=== PATIENT | male | born 1970 | race Caucasian/White ===

== ENCOUNTER 2016-11-05 15:47 | Inpatient (IN) | payer BC ==
[~2016-11-05 15:47] MED LIST: 3-IN3MIS; HYDR-3580 PO; WALKER WHEELS/F1 MIS; XARE15TA PO
[2016-11-05 15:50] VITALS: BP 146/92; PULSE 99; RESP 20; TEMP 97.9; O2SAT 98
[2016-11-05] MEDS ORDERED: SODIUM CHLOR 0.9% 1000 ML INJ 1,000 ML IV ONE ×2 (15:53→17:00)
[2016-11-05 15:57] VITALS: O2SAT 98
[2016-11-05] MEDS ORDERED: IOHEXOL 350 MG/ML 10 ML VIAL (for RAD DIAG) IV ONE (16:07)
--- NOTE | 2016-11-05 16:09 | RADRPT ---
EXAM DATE/TIME: 11/05/2016 15:58 [facility] COMPARISON: No previous studies available for comparison. INDICATIONS : Stroke alert; aphasia. RADIATION DOSE: 36.76 CTDIvol (mGy) This report was called by Dr. varela to Dr. Mcnulty at 4: 07 PM MEDICAL HISTORY : Non-responsive. SURGICAL HISTORY : Non-responsive. ENCOUNTER: Initial ACUITY: 1 day PAIN SCALE: Non-responsive LOCATION: cranial TECHNIQUE: Multiple contiguous axial images were obtained of the head. Using automated exposure control and adj ustment of the mA and/or kV according to patient size, radiation dose was kept as low as reasonably a chievable to obtain optimal diagnostic quality images. FINDINGS: CEREBRUM: The ventricles are normal for age. No evidence of midline shift, mass lesion, hemorrhage or acute in farction. No extra-axial fluid collections are seen. POSTERIOR FOSSA: The cerebellum and brainstem are intact. The 4th ventricle is midline. The cerebellopontine angle i s unremarkable. EXTRACRANIAL: The visualized portion of the orbits is intact. There is chronic sinus disease in the left maxillary sinus. There is chronic sinus disease in the ethmoid sinuses. SKULL: The calvaria is intact. No evidence of skull fracture. CONCLUSION: Normal examination for a patient of this age. Zelalem Pearson MD on November 05, 2016 at 16:06 Board Certified Radiologist. This report was verified electronically.
[2016-11-05 16:10] LABS: I-STAT POTASSIUM 3.6 MMOL/L (3.5-4.9); I-STAT SODIUM 147 MMOL/L (138-146)
[2016-11-05 16:11] LABS: AUTOMATED NEUTROPHIL # 3.2 TH/MM3 (1.8-7.7); BASOPHIL # 0.1 TH/MM3 (0-0.2); BASOPHIL % 0.7 % (0.0-2.0); EOSINOPHIL # 0.2 TH/MM3 (0-0.4); EOSINOPHIL % 2.2 % (0.0-4.0); HEMATOCRIT 43.1 % (39.0-51.0); HEMO FLAGS DIFF FINAL; LYMPH % 50.3 % (9.0-44.0); MEAN CELL VOLUME 94.9 FL (80.0-100.0); MEAN CORPUSCULAR HEMOGLOBIN 32.1 PG (27.0-34.0); MEAN CORPUSCULAR HGB CONC 33.8 % (32.0-36.0); MONO % 6.5 % (0.0-8.0); NEUT % 40.3 % (16.0-70.0); PLATELET COUNT 170 TH/MM3 (150-450); RED BLOOD COUNT 4.54 MIL/MM3 (4.50-5.90); RED CELL DISTRIBUTION WIDTH 14.8 % (11.6-17.2); WHITE BLOOD COUNT 7.9 TH/MM3 (4.0-11.0)
[2016-11-05 16:17] LABS: APTT (PATIENT) 26.3 SEC (24.3-30.1); PROTHROMBIN TIME - PATIENT 10.8 SEC (9.8-11.6)
[2016-11-05 16:24] VITALS: O2SAT 100
--- NOTE | 2016-11-05 16:25 | RADRPT ---
EXAM DATE/TIME: 11/05/2016 16:06 [facility] COMPARISON: CT BRAIN W/O CONTRAST, November 05, 2016, 15:58. INDICATIONS : Stroke alert; aphasia; evaluate for occlusion. IV CONTRAST: 75 cc Omnipaque 350 (iohexol) IV ; Cumulative dose for multiple exams. RADIATION DOSE: 28.14 CTDIvol (mGy) ; Combined studies MEDICAL HISTORY : Non-responsive. SURGICAL HISTORY : Non-responsive. ENCOUNTER: Initial ACUITY: 1 day PAIN SCALE: Non-responsive LOCATION: cranial TECHNIQUE: Volumetric scanning was performed using a multi-row detector CT scanner. The data was post processed with a variety of visualization algorithms including full volume maximum intensity projection, multi -planar sliding thin slab reformation, curved planar reformation, and surface rendering techniques. Using automated exposure control and adjustment of the mA and/or kV according to patient size, radiat ion dose was kept as low as reasonably achievable to obtain optimal diagnostic quality images. FINDINGS: Both distal internal carotid arteries are widely patent. The vertebral arteries are patent. The right vertebral is diminutive in size. The appearance of anterior and middle cerebral circulation is within normal limits. No large or centr al vessel occlusion is identified. The basilar somewhat small in size. Both posterior communicating arteries are patent. The posterior c erebral circulation is widely patent. CONCLUSION: 1. No large or central vessel occlusion identified. 2. Congenitally small right vertebral. Zane Puckett MD on November 05, 2016 at 16:20 Board Certified Radiologist. This report was verified electronically.
--- NOTE | 2016-11-05 16:26 | RADRPT ---
EXAM DATE/TIME: 11/05/2016 16:14 [facility] COMPARISON: HIP LEFT (AP&LAT 2/3VWS) WO AP PELVIS, September 05, 2016, 15:05. INDICATIONS : Storke alert. MEDICAL HISTORY : Unobtainable. SURGICAL HISTORY : Unobtainable. ENCOUNTER: Initial ACUITY: 1 day PAIN SCORE: Non-responsive. LOCATION: Bilateral chest FINDINGS: The heart is mildly enlarged. There are chronic interstitial changes within the pulmonary parenchyma. The lungs are otherwise clear. The visualized bony structures are grossly intact. CONCLUSION: 1. Mild cardiomegaly. No acute abnormality identified. Zane Puckett MD on November 05, 2016 at 16:24 Board Certified Radiologist. This report was verified electronically.
[2016-11-05 16:30] VITALS: BP 155/99; PULSE 85; RESP 18; O2SAT 97
--- NOTE | 2016-11-05 16:43 | RADRPT ---
EXAM DATE/TIME: 11/05/2016 16:06 [facility] COMPARISON: No previous studies available for comparison. INDICATIONS : Stroke alert; aphasia; evaluate for occlusion. IV CONTRAST: 75 cc Omnipaque 350 (iohexol) IV ; Cumulative dose for multiple exams. RADIATION DOSE: 28.14 CTDIvol (mGy) ; Combined studies MEDICAL HISTORY : Non-responsive. SURGICAL HISTORY : Non-responsive. ENCOUNTER: Initial ACUITY: 1 day PAIN SCALE: Non-responsive LOCATION: neck TECHNIQUE: Volumetric scanning was performed using a multirow detector CT scanner. The data was post processed with a variety of visualization algorithms including full-volume maximum intensity projection, multip lanar sliding thin-slab reformation, curved-planar reformation, and surface-rendering techniques. Us ing automated exposure control and adjustment of the mA and/or kV according to patient size, radiatio n dose was kept as low as reasonably achievable to obtain optimal diagnostic quality images. FINDINGS: AORTIC ARCH: Truncus arch anatomy with common origin of the right brachiocephalic artery and left common carotid a rtery from the arch. No evidence of arch vessel stenosis. RIGHT CAROTID: The common carotid artery is intact. The carotid bulb has a normal configuration without ulceration o r narrowing. The internal carotid artery lumen is smooth without stenosis. The external carotid amer[place] ry is intact. LEFT CAROTID: The common carotid artery is intact. The carotid bulb has a normal configuration without ulceration or narrowing. The internal carotid artery lumen is smooth without stenosis. The external carotid ar ronaldo is intact. VERTEBRALS: Vertebral arteries are patent bilaterally, left side dominant. CONCLUSION: No evidence of carotid stenosis or occlusion Dom Horn MD on November 05, 2016 at 16:38 Board Certified Radiologist. This report was verified electronically.
[2016-11-05 16:46] LABS: CREATINE KINASE 49 U/L (39-308)
--- NOTE | 2016-11-05 17:01 | PD ---
HPI Chief Complaint: Stroke Alert Time Seen by Provider: 15:52 Travel History International Travel<30 days: No Contact w/Intl Traveler<30days: No Traveled to known affect area: No History of Present Illness HPI Patient is a 46-year-old male brought in as a stroke alert. Per EMS patient was last seen normal 45 minutes prior to arrival. Patient's son states that he was speaking to him, then he went to take a nap. 10 minutes after he left him, he heard him garbling his words and making noises as if he was in pain. He was unable to arouse him, so he called 911. Patient's son does state that he drinks alcohol often. He is on Xarelto for DVT, and his son states that he has been taking them appropriately. He states he had no complaints earlier today. Patient currently is a phasic, and cannot answer questions. PFSH Past Medical History Cancer: No Cardiovascular Problems: No Diabetes: No Diminished Hearing: No Endocrine: No Gastrointestinal Disorders: Yes (umbilical hernia ) Genitourinary: No Hepatitis: No Hiatal Hernia: No Hypertension: No Immune Disorder: No Musculoskeletal: No Neurologic: No Psychiatric: No Reproductive: No Respiratory: Yes (SPONTANIOUS PNEUMOTHORAX IN 1999) Immunizations Current: Yes Thyroid Disease: No Past Surgical History Abdominal Surgery: Yes (UMBILICAL HERNIA) Cardiac Surgery: No Ear Surgery: No Endocrine Surgery: No Eye Surgery: No Genitourinary Surgery: No Gynecologic Surgery: No Neurologic Surgery: No Oral Surgery: No Thoracic Surgery: No Other Surgery: Yes Social History Alcohol Use: Yes (1-2 BEERS PER DAY) Tobacco Use: No (QUIT 4 YRS AGO smoked 1/3 ppd) Substance Use: No Allergies-Medications (Allergen,Severity, Reaction): Coded Allergies: No Known Allergies (Verified , 09/20/16) Reported Meds & Prescriptions Reported Meds & Active Scripts Active Xarelto (Rivaroxaban) 15 Mg Tab 15 Mg PO BID 20 Days 3-in-1 Commode (Device) 1 Mis Mis Box Walker with Front Wheels (Device) 1 Mis Mis 1 Ea .ROUTE DIRECTED Hydrocodone-Acetaminophen 7.5-325 mg Tab 1 Tab PO Q4H PRN Review of Systems ROS Limitations: Clinical Condition, Altered Mental Status Physical Exam Exam Limitations: Clinical Condition Narrative GENERAL: Awake, answers to his name, unable to answer questions. SKIN: Warm and dry. HEAD: Atraumatic. Normocephalic. EYES: Pupils equal and round. No scleral icterus. EOMI. ENT: Mucous membranes pink and moist. NECK: Trachea midline. No JVD. CARDIOVASCULAR: Regular rate and rhythm. No murmur appreciated. RESPIRATORY: No accessory muscle use. Clear to auscultation. Breath sounds equal bilaterally. GASTROINTESTINAL: Abdomen soft, non-tender, nondistended. MUSCULOSKELETAL: No obvious deformities. No clubbing. No cyanosis. No edema. NEUROLOGICAL: Awake alert to person, unable to assess further. No obvious cranial nerve deficits. He moves all of his extremities, but is unable to follow any commands. Complete aphasia. Data Data Last Documented VS Vital Signs Date Time Temp Pulse Resp B/P Pulse Ox O2 Delivery O2 Flow Rate FiO2 11/05/16 16:30 85 18 155/99 97 Nasal Cannula 2 11/05/16 15:50 97.9 Orders Diet Npo (11/05/16 Dinner) Activity Bed Rest (11/05/16 ) Electrocardiogram (11/05/16 ) I-Stat Creatinine (11/05/16 15:53) I-Stat Profile (11/05/16 15:53) Prothrombin Time / Inr (Pt) (11/05/16 15:53) Act Partial Throm Time (Ptt) (11/05/16 15:53) Complete Blood Count With Diff (11/05/16 15:53) Fibrinogen (11/05/16 15:53) Creatine Kinase (Cpk) (11/05/16 15:53) Troponin I (11/05/16 15:53) Ua Includes Microscopic (11/05/16 15:53) Drug Screen, Random Urine (11/05/16 15:53) Type And Screen (11/05/16 15:53) Ct Brain W/O Iv Contrast(Rout) (11/05/16 ) Chest, Single Ap (11/05/16 ) Cta Brain W Iv Contrast W 3d (11/05/16 15:53) Consult Neurology (11/05/16 ) Blood Glucose (11/05/16 15:53) Ecg Monitoring (11/05/16 15:53) Neuro Checks Q2HX12,Q4H (11/05/16 15:53) Nursing Bedside Swallow Assess .ONCE (11/05/16 15:53) Iv Access Insert/Monitor (11/05/16 15:53) NPO (11/05/16 15:53) Oximetry (11/05/16 15:53) Oxygen Administration (11/05/16 15:53) Sodium Chlor 0.9% 1000 Ml Inj (Ns 1000 M (11/05/16 15:53) Resp Oxygen Charles C Titrat 1-4 L (11/05/16 15:53) Cath For Specimen (11/05/16 15:53) Cta Neck W Iv Contrast W 3d (11/05/16 ) (Hub Use Only)Inp Phy Cons/Ref (11/05/16 ) Alcohol (Ethanol) (11/05/16 15:50) Iohexol 350 Inj (Omnipaque 350 Inj) (11/05/16 16:07) Sodium Chlor 0.9% 1000 Ml Inj (Ns 1000 M (11/05/16 17:00) Vital Signs (Adult) Q4H (11/05/16 17:02) Nih Stroke Scale - Nihss .On admission and discharge (11/05/16 17:02) Neuro Checks Q2HX12,Q4H (11/05/16 17:02) Ot Request For Service (11/05/16 17:02) Consult Pt Eval & Treat (11/05/16 17:02) Swallow Eval W/ St (11/05/16 17:02) St Request For Service (11/05/16 17:02) Case Management Consult (11/05/16 ) Nursing Bedside Swallow Assess .ONCE (11/05/16 17:02) Scd Bilateral/Knee High RENATA.QSHIFT (11/05/16 17:02) Hemoglobin (Hgb) A1c (11/05/16 17:02) Lipid Profile (11/06/16 06:00) Mri Brain W/O Contrast (11/05/16 ) Echo 2d Comp W/Dopp(Routine) (11/05/16 ) Resp Oxygen Charles C Titrat 1-4 L (11/05/16 ) ^ Hold Medication (11/05/16 17:02) Sodium Chloride 0.9% Flush (Ns Flush) (11/05/16 21:00) Sodium Chloride 0.9% Flush (Ns Flush) (11/05/16 17:15) Enalaprilat Inj (Vasotec Inj) (11/05/16 17:15) Labetalol Inj (Trandate Inj) (11/05/16 17:15) Bedside Glucose RENATA.AC&HS (11/05/16 17:02) ^ Discontinue Insulin Orders (11/05/16 17:02) Insulin Aspart Supplemtl Scale (Novolog (11/05/16 21:00) Dextrose 50% In Bola (Vial) Inj (D50w (Vi (11/05/16 17:15) Glucagon Inj (Glucagon Inj) (11/05/16 17:15) Consult Rehab Medicine (11/05/16 17:02) ^ Fpga Engineer / Telemetry (11/05/16 17:02) Admit Order (Ed Use Only) (11/05/16 ) Labs Laboratory Tests Test 11/05/16 15:50 White Blood Count 7.9 TH/MM3 Red Blood Count 4.54 MIL/MM3 Hemoglobin 14.6 GM/DL Bedside Hemoglobin 14.6 G/DL Hematocrit 43.1 % Bedside Hematocrit 43.0 % Mean Corpuscular Volume 94.9 FL Mean Corpuscular Hemoglobin 32.1 PG Mean Corpuscular Hemoglobin 33.8 % Concent Red Cell Distribution Width 14.8 % Platelet Count 170 TH/MM3 Mean Platelet Volume 8.7 FL Neutrophils (%) (Auto) 40.3 % Lymphocytes (%) (Auto) 50.3 % Monocytes (%) (Auto) 6.5 % Eosinophils (%) (Auto) 2.2 % Basophils (%) (Auto) 0.7 % Neutrophils # (Auto) 3.2 TH/MM3 Lymphocytes # (Auto) 4.0 TH/MM3 Monocytes # (Auto) 0.5 TH/MM3 Eosinophils # (Auto) 0.2 TH/MM3 Basophils # (Auto) 0.1 TH/MM3 CBC Comment DIFF FINAL Differential Comment Prothrombin Time 10.8 SEC Prothromb Time International 1.0 RATIO Ratio Activated Partial 26.3 SEC Thromboplast Time Fibrinogen 230 mg/dL Bedside Sodium 147 MMOL/L Bedside Potassium 3.6 MMOL/L Bedside Chloride 107 MMOL/L Bedside Blood Urea Nitrogen 9 MG/DL Bedside Creatinine 1.1 MG/DL Bedside Glucose 105 MG/DL Total Creatine Kinase 49 U/L Troponin I LESS THAN 0.02 NG/ML Ethyl Alcohol Level 409 MG/DL Blood Type A POSITIVE Antibody Screen NEGATIVE [facility] Medical Decision Making Medical Screen Exam Complete: Yes Emergency Medical Condition: Yes Medical Record Reviewed: Yes Interpretation(s) ECG shows NSR at 94. No ST elevation or depression. Differential Diagnosis CVA vs ICH vs electrolyte abnormalities Narrative Course Patient is a 46 year old male BIBEMS for aphasia. Exam shows complete aphasia, he is moving all of his extremities, but does not follow commands. IV established, patient connected to the engine monitor. Taken to CT where CT head showed no acute bleed. Dr. Andrade is at bedside for neurology. Patient is on Xarelto and is therefore not eligible for TPA. Labs sent show alcohol level of 409. Patient hydrated. Admitted for further management. Diagnosis Primary Impression: CVA (cerebral vascular accident) Qualified Code: I63.8 - Cerebrovascular accident (CVA) due to other mechanism Admitting Information Admitting Physician Requests: it Kailyn Mcnulty MD Nov 05, 2016 17:01
[2016-11-05] MEDS ORDERED: ENALAPRILAT 1.25 MG/ML VIAL IV PRN (17:15)
[2016-11-05] MEDS ORDERED: DEXTROSE 50% IN WATER 50 ML VIAL(D50) IV PUSH PRN (17:15)
[2016-11-05] MEDS ORDERED: GLUCAGON 1 MG/ML VIAL IM/SQ PRN (17:15)
[2016-11-05] MEDS ORDERED: LABETALOL HCL 100 MG/20 ML VIAL IV PRN (17:15)
[2016-11-05] MEDS ORDERED: SODIUM CHLORIDE 0.9% FLUSH 5 ML FLUSH IVF PRN (17:15)
--- NOTE | 2016-11-05 17:44 | MB ---
cc: CASSI CALLEJAS M.D. DATE OF CONSULTATION: 11/05/2016 DATE OF : 1970, 46 years old. REASON FOR CONSULTATION Stroke alert. HISTORY OF PRESENT ILLNESS: This is a 46-year-old man who was at home. His son stated that he noted that his father was not talking appropriately, hence he was brought in as a stroke alert. He has a significant history of DVT, left lower extremity back in September of 2016. He had open reduction, internal fixation of the left hip at that time, was on Lovenox and then changed over to Xarelto that his son states that he is taking. The patient cannot give any history. His DVT of the left leg is below the knee, occlusive in the peroneal and posterior tibial veins, nonocclusive in the popliteal. The femoral veins were patent. However, the issue here really is the time of onset. It is not clear by history. It is not also very clear what the patient was doing before the event. There is no family unfortunately at bedside. PAST MEDICAL HISTORY: As stated. SOCIAL HISTORY: Unobtainable from the patient. He has a known history of alcohol abuse. Actually his alcohol level currently is 409. He did undergo strict stroke protocol and went down for CT of the brain that was unremarkable, CT of the [place] and carotids that were negative as well for any large occlusion or carotid disease. MEDICATIONS: I am told that he is on Xarelto daily due to the DVT. PHYSICAL EXAMINATION: VITAL SIGNS: Temperature is 97.9, pulse 85, respiratory rate 18, blood pressure 155/99, sating at 97% room air, two liters nasal cannula. NECK: Supple. HEART: Regular. LUNGS: Clear. He is awake and alert, tries to follow commands. Pupils reactive. Face symmetrical. Tongue is midline visual moffett cannot be assessed. He does not follow. He is aphasic, receptive and expressive. He can lift his arms up antigravity. He does not understand the concept of strength testing. I do not appreciate a drift. He will lift his right leg up for me. He states he does not want to lift the left leg up for a prolonged period of time but does. He states that it hurts. Reflexes are 1+ sensory, withdraws to pain. Right toe tends to go up. Gait, cerebellar cannot be assessed due to his aphasia. NIH 3 LABORATORY DATA: Reviewed. CBC is really unremarkable. Chemistry: Sodium 147. Cardiac enzymes, troponin less than 0.02. CK 49, glucose 105, Coag panel unremarkable. Toxicology: ethanol level 409, Imaging was unremarkable as well. IMPRESSION The patient is a 46-year-old man with what looks like expressive aphasia due to stroke, left hemispheric. Certainly may be due to his DVT. Currently on Xarelto. Unfortunately due to the fact that he is on Xarelto he does not meet criteria for thrombolysis and there is no interventional procedure needed, since there is no major occlusion noted. We will continue keeping him anticoagulated if can swallow. We can restart the Xarelto. If not, I would consider warfarin if this is a Xarelto failure. I would put him on Lovenox for the interim full dose. Will get an MRI of the brain. He does not need MRA due to the CTAs he has had. Will get a 2-D echocardiogram. PT/OT, speech therapy, rehab consult, permissible hypertension. Further recommendations will be made accordingly. MD NAYELI Vazquez/NALDO /4:57 PM /5:15 PM SERGE
[2016-11-05 18:47] LABS: HEMOGLOBIN A1a 0.9 %; HEMOGLOBIN Ao 88.2 %; HEMOGLOBIN F 0.1 %; HEMOGLOBIN LA1C 1.9 %; HEMOGLOBIN P3 3.1 %
[2016-11-05 19:11] LABS: BLOOD, URINE NEG (NEG); GLUCOSE,URINE NEG (NEG); KETONE, URINE NEG (NEG); NITRITE,URINE NEG (NEG); PH, URINE 6.5 (5.0-8.5); URINE COLOR LIGHT-YELLOW (YELLW/STRAW)
[2016-11-05 19:20] LABS: AMPHETAMINE, URINE NEG (NEG); BARBITURATES, URINE NEG (NEG); COCAINE, URINE NEG (NEG)
[2016-11-05 20:00] VITALS: O2SAT 97
[2016-11-05] MEDS ORDERED: SODIUM CHLORIDE 0.9% FLUSH 5 ML FLUSH IVF SCH (21:00)
[2016-11-05] MEDS: INSULIN ASPART SUPPLEMENTAL SCALE SQ SCH (21:00)
[2016-11-05 21:46] VITALS: BP 124/75
--- NOTE | 2016-11-05 22:34 | RADRPT ---
EXAM DATE/TIME: 11/05/2016 20:39 [facility] COMPARISON: No previous studies available for comparison. INDICATIONS : CVA. Weakness. MEDICAL HISTORY : Deep venous thrombosis. SURGICAL HISTORY : Left leg crystal. ENCOUNTER: Subsequent ACUITY: 1 day PAIN SCORE: 0/10 LOCATION: head. TECHNIQUE: Multiplanar, multisequence MRI of the brain was performed without contrast. FINDINGS: CEREBRUM: The ventricles are normal for age. No evidence of midline shift, mass lesion, hemorrhage or acute in farction. No extraaxial fluid collections are seen. The pituitary gland and suprasellar cistern are normal in configuration. WHITE MATTER: No significant signal abnormalities are seen in the white matter. POSTERIOR FOSSA: The cerebellum and brainstem are intact. The 4th ventricle is midline. The cerebellopontine angle is unremarkable. The cerebellar tonsils are normal in position. DIFFUSION IMAGING: No focal areas of restricted diffusion are seen. No evidence of acute infarction. EXTRACRANIAL: Mild ethmoid sinus disease and mucosal disease in the left maxillary antrum.. CONCLUSION: No acute intracranial findings Dom Horn MD on November 05, 2016 at 22:32 Board Certified Radiologist. This report was verified electronically.
[2016-11-06] VITALS (11 sets, daily range): BP systolic 122–223; BP diastolic 83–116; PULSE 75–105; RESP 18; TEMP 96–98; O2SAT 94–98
--- NOTE | 2016-11-06 05:16 | HHI.HP ---
[facility] No Primary Care Physician Admission Diagnosis Stroke Diagnoses: Chief Complaint: Stroke alert Travel History International Travel<30 Days: No Contact w/Intl Traveler <30 Da: No Traveled to Known Affected Are: No History of Present Illness History taken from patient and ED physician. 46-year-old male with a history of hypertension and lower extremity DVT presented to the ED by ambulance as a stroke alert. Patient was hanging out with friends and drinking excessively when he was noted to have some slurred speech and 911 was called. Patient states he believes he passed out after drinking an unknown amount of alcohol. He does not recall any of other events and only remembers waking up in the hospital. Alcohol level on admission was 409. He states he does drink about 1-2 beers a day but today he thinks he must have had more. Patient states up to one week ago he was currently on Xarelto for a DVT in his left lower extremity, in which she was on it for approximately 2 months. Patient currently sees Dr. Bragg. He denies ever having any chest pain, shortness breath, fever or chills Review of Systems Constitutional: DENIES: Fever, Chills Respiratory: DENIES: Cough, Sputum production, Shortness of breath Cardiovascular: DENIES: Chest pain, Dyspnea on Exertion, Lower Extremity Edema Gastrointestinal: DENIES: Constipation, Diarrhea, Nausea, Vomiting Genitourinary: DENIES: Hematuria Musculoskeletal: DENIES: Back pain, Neck pain Integumentary: DENIES: Rash Hematologic/lymphatic: DENIES: Lymphadenopathy Past Family Social History Past Medical History Hypertension-not on medication DVT in left lower extremity post hip surgery Past Surgical History ORIF left hip Reported Medications Reported Meds & Active Scripts Active Xarelto (Rivaroxaban) 15 Mg Tab 15 Mg PO BID 20 Days 3-in-1 Commode (Device) 1 Mis Mis Box Walker with Front Wheels (Device) 1 Mis Mis 1 Ea .ROUTE DIRECTED Hydrocodone-Acetaminophen 7.5-325 mg Tab 1 Tab PO Q4H PRN Allergies: Coded Allergies: No Known Allergies (Verified , 09/20/16) Active Ordered Medications Current Medications Medications (Trade) Dose Ordered Sig/Derik Route Start Time Stop Time Status Last Admin (NS 1000 ml Inj) 1,000 ml @ 70 mls/hr [id number] ONCE IV 11/05/16 15:53 11/06/16 06:10 11/05/16 16:15 (NS Flush) 2 ml BID IVF 11/05/16 21:00 (NS Flush) 2 ml UNSCH PRN IVF 11/05/16 17:15 (Vasotec Inj) 1.25 mg Q4H PRN IV 11/05/16 17:15 (Trandate Inj) 10 mg Q2H PRN IV 11/05/16 17:15 (D50w (Vial) Inj) 25 ml UNSCH PRN IV PUSH 11/05/16 17:15 (Glucagon Inj) 1 mg UNSCH PRN IM/SQ 11/05/16 17:15 Family History Grandfather: Lung cancer Social History Tobacco use: Quit 2 years ago Alcohol use: Daily 1-2 beers Illicit drug use: Denies Physical Exam Vital Signs Vital Signs Date Time Temp Pulse Resp B/P Pulse Ox O2 Delivery O2 Flow Rate FiO2 11/06/16 02:46 92 11/06/16 00:01 96.0 90 18 122/83 98 11/05/16 21:46 86 16 124/75 95 11/05/16 21:00 16 99 11/05/16 20:00 97 11/05/16 16:30 85 18 155/99 97 Nasal Cannula 2 11/05/16 16:24 100 Nasal Cannula 2.00 11/05/16 15:57 98 Nasal Cannula 2 11/05/16 15:57 98 Nasal Cannula 2 11/05/16 15:50 97.9 99 20 146/92 98 Physical Exam GENERAL: This is a well-nourished, well-developed patient, in no apparent distress. SKIN: No rashes, ecchymoses or lesions. Cool and dry. HEAD: Atraumatic. Normocephalic EYES: Pupils equal round and reactive. ENT: Nose without bleeding, purulent drainage or septal hematoma. Airway patent. NECK: Trachea midline. No JVD or lymphadenopathy. Supple, nontender, no meningeal signs. CARDIOVASCULAR: Regular rate and rhythm without murmurs, gallops, or rubs. RESPIRATORY: Clear to auscultation. Breath sounds equal bilaterally. No wheezes , rales, or rhonchi. GASTROINTESTINAL: Abdomen soft, non-tender, nondistended. MUSCULOSKELETAL: Extremities without clubbing, cyanosis, or edema. No joint tenderness, effusion, or edema noted. No calf tenderness. NEUROLOGICAL: Awake and alert. Cranial nerves II through XII intact. Motor and sensory grossly within normal limits. Five out of 5 muscle strength in all muscle groups. Normal speech. Laboratory Laboratory Tests Test 11/05/16 11/05/16 15:50 18:25 White Blood Count 7.9 Red Blood Count 4.54 Hemoglobin 14.6 Bedside Hemoglobin 14.6 Hematocrit 43.1 Bedside Hematocrit 43.0 Mean Corpuscular Volume 94.9 Mean Corpuscular Hemoglobin 32.1 Mean Corpuscular Hemoglobin 33.8 Concent Red Cell Distribution Width 14.8 Platelet Count 170 Mean Platelet Volume 8.7 Neutrophils (%) (Auto) 40.3 Lymphocytes (%) (Auto) 50.3 Monocytes (%) (Auto) 6.5 Eosinophils (%) (Auto) 2.2 Basophils (%) (Auto) 0.7 Neutrophils # (Auto) 3.2 Lymphocytes # (Auto) 4.0 Monocytes # (Auto) 0.5 Eosinophils # (Auto) 0.2 Basophils # (Auto) 0.1 CBC Comment DIFF FINAL Differential Comment Prothrombin Time 10.8 Prothromb Time International 1.0 Ratio Activated Partial 26.3 Thromboplast Time Fibrinogen 230 Bedside Sodium 147 Bedside Potassium 3.6 Bedside Chloride 107 Bedside Blood Urea Nitrogen 9 Bedside Creatinine 1.1 Bedside Glucose 105 Hemoglobin A1c 4.5 Total Creatine Kinase 49 Troponin I LESS THAN 0.02 Ethyl Alcohol Level 409 Blood Type A POSITIVE Antibody Screen NEGATIVE Urine Color LIGHT-YELLOW Urine Turbidity CLEAR Urine pH 6.5 Urine Specific [place] 1.017 Urine Protein NEG Urine Glucose (UA) NEG Urine Ketones NEG Urine Occult Blood NEG Urine Nitrite NEG Urine Bilirubin NEG Urine Urobilinogen LESS THAN 2.0 Urine Leukocyte Esterase NEG Urine Opiates Screen NEG Urine Barbiturates Screen NEG Urine Amphetamines Screen NEG Urine Benzodiazepines Screen NEG Urine Cocaine Screen NEG Urine Cannabinoids Screen NEG Result Diagram: 11/05/16 1550 Imaging Last Impressions Head CTA 11/05/16 1553 Signed Impressions: Service Date/Time: Saturday, November 05, 2016 16:06 - CONCLUSION: 1. No large or central vessel occlusion identified. 2. Congenitally small right vertebral. Zane Puckett MD Neck CTA 11/05/16 0000 Signed Impressions: Service Date/Time: Saturday, November 05, 2016 16:06 - CONCLUSION: No evidence of carotid stenosis or occlusion Dom Horn MD Head CT 11/05/16 0000 Signed Impressions: Service Date/Time: Saturday, November 05, 2016 15:58 - CONCLUSION: Normal examination for a patient of this age. Zelalem Pearson MD Chest X-Ray 11/05/16 0000 Signed Impressions: Service Date/Time: Saturday, November 05, 2016 16:14 - CONCLUSION: 1. Mild cardiomegaly. No acute abnormality identified. Zane Puckett MD Brain MRI 11/05/16 0000 Signed Impressions: Service Date/Time: Saturday, November 05, 2016 20:39 - CONCLUSION: No acute intracranial findings Dom Horn MD Assessment and Plan Problem List: (1) CVA (cerebral vascular accident) ICD Code: I63.9 Status: Acute (2) Alcohol abuse ICD Code: F10.10 Status: Chronic (3) HTN (hypertension) ICD Code: I10 Status: Chronic Assessment and Plan 46-year-old male with a history of hypertension and recent left lower extremity DVT presented as a stroke alert: CVA, likely alcohol intoxication, will rule out CVA Images reviewed: Head CT unremarkable, MRI unremarkable, neck CTA unremarkable -Consult neurology: Dr. Andrade is currently following -2-D echo pending -Lipid profile pending -PT/OT/ST Alcohol abuse, patient states he only drinks 1-2 beers a day Labs reviewed: Alcohol level on admission was 409 -Encouraged to quit -CIWA protocol in place -Withdrawal precautions Hypertension, chronic -Labetalol IV, and Vasotec IV PRN -Monitor telemetry and vitals DVT prophylaxis: Xarelto Written by Nina PIERCE, acting as scribe for Dr. Snyder on 11/06/16 at 0354. The documentation accurately reflects the work performed [id number] and decisions made by me and the physician Dr Snyder on 11/06/16. The documentation accurately reflects the work performed [id number] by me on at 0354 Discussed Condition With Patient an ED physician Physician Certification 2 Midnight Certification Type: Admission for Inpatient Services Order for Inpatient Services The services are ordered in accordance with Medicare regulations or non- Medicare payer requirements, as applicable. In the case of services not specified as inpatient-only, they are appropriately provided as inpatient services in accordance with the 2-midnight benchmark. Estimated LOS (days): 3 days is the estimated time the patient will need to remain in the hospital, assuming treatment plan goals are met and no additional complications. Post-Hospital Plan: Home Problem Qualifiers (1) CVA (cerebral vascular accident): Qualified Code: I63.8 - Cerebrovascular accident (CVA) due to other mechanism Nina Torrez Nov 06, 2016 05:16 Christine Snyder MD Nov 14, 2016 08:10
[2016-11-06] MEDS ORDERED: SODIUM CHLORIDE 0.9% FLUSH 5 ML FLUSH IV FLUSH PRN (05:30)
[2016-11-06] MEDS ORDERED: LORazepam 2 MG TAB PO PRN (05:30)
[2016-11-06] MEDS ORDERED: LORazepam 2 MG/ML VIAL IV PUSH PRN ×4 (05:30)
[2016-11-06] MEDS ORDERED: LORazepam 1 MG TAB PO PRN (05:30)
[2016-11-06] MEDS ORDERED: FLUMAZENIL 1 MG/10 ML VIAL IV PUSH PRN (05:30)
[2016-11-06] MEDS: INSULIN ASPART SUPPLEMENTAL SCALE SQ SCH ×4 (05:35→20:37)
[2016-11-06] MEDS: SODIUM CHLORIDE 0.9% FLUSH 5 ML FLUSH IV FLUSH SCH ×2 (08:31→20:36)
[2016-11-06] MEDS: RIVAROXABAN 15 MG TAB PO SCH ×2 (08:31→20:35)
[2016-11-06 09:51] LABS: HDL CHOLESTEROL 39.7 MG/DL (40.0-60.0)
--- NOTE | 2016-11-06 11:42 | EKG ---
Date Performed: 11/05/2016 Time Performed: 16:31:21 PTAGE: 46 years EKG: Sinus rhythm INFERIOR MYOCARDIAL INFARCTION ABNORMAL ECG WARNING: DATA QUALITY MAY AFFECT INTERPRETATION PREVIOUS TRACING : 03/14/2009 18.39 DOCTOR: Neptali Alcantara Interpretating Date/Time 11/06/2016 11:41:32
[2016-11-06 15:04] LABS: HEMATOCRIT 42.3 % (39.0-51.0); MEAN CELL VOLUME 94.3 FL (80.0-100.0); MEAN CORPUSCULAR HEMOGLOBIN 31.7 PG (27.0-34.0); MEAN CORPUSCULAR HGB CONC 33.6 % (32.0-36.0); PLATELET COUNT 152 TH/MM3 (150-450); RED BLOOD COUNT 4.49 MIL/MM3 (4.50-5.90); RED CELL DISTRIBUTION WIDTH 14.9 % (11.6-17.2); REVIEW FLAG FINAL; WHITE BLOOD COUNT 5.9 TH/MM3 (4.0-11.0)
[2016-11-06 15:15] LABS: ALT (GPT) 22 U/L (12-78); ANION GAP 11 MEQ/L (5-15); AST (GOT) 17 U/L (15-37); BICARBONATE 23.6 MEQ/L (21.0-32.0); BLOOD UREA NITROGEN 10 MG/DL (7-18); CHLORIDE 105 MEQ/L (98-107); GLOMERULAR FILTRATION RATE 113 ML/MIN (>89); POTASSIUM 3.8 MEQ/L (3.5-5.1); SODIUM (NA) 140 MEQ/L (136-145)
[2016-11-06 15:18] LABS: ALKALINE PHOSPHATASE 158 U/L (45-117); TOTAL BILIRUBIN ADULT 0.3 MG/DL (0.2-1.0)
--- NOTE | 2016-11-06 15:52 | EC ---
Study Study Date:11/06/2016 STUDY CONCLUSIONS SUMMARY - Left ventricle: The cavity size was normal. Wall thickness was normal. Systolic function was mildly to moderately reduced. The estimated ejection fraction was in the range of 40% to 45%. Wall motion was normal; there were no regional wall motion abnormalities. - Aortic valve: Valve area: 2.68cm^2 (Vmax). If LV function is below 40, please consider prescribing an ACEI or ARB or document rationale for non-use. PROCEDURE DATA STUDY STATUS: Elective. Procedure: Transthoracic echocardiography. Image quality was good. Scanning was performed from the parasternal, apical, and subcostal acoustic windows. Study completion: The patient tolerated the procedure well. Transthoracic echocardiography. M-mode, complete 2D, complete spectral Doppler, and color Doppler. Height: Height: 74in. Weight: Weight: 225.5lb. Body mass index: BMI: 29kg/m^2. Body surface area: BSA: 2.29m^2. Patient status: Inpatient. CARDIAC ANATOMY LEFT VENTRICLE: The cavity size was normal. Wall thickness was normal. Systolic function was mildly to moderately reduced. The estimated ejection fraction was in the range of 40% to 45%. Wall motion was normal; there were no regional wall motion abnormalities. AORTIC VALVE: Trileaflet; normal thickness leaflets. Doppler: Transvalvular velocity was within the normal range. There was no stenosis. No regurgitation. Valve area: 2.68cm^2 (Vmax). Indexed valve area: 1.17cm^2/m^2 (Vmax). AORTA: Aortic root: The aortic root was normal in size. MITRAL VALVE: Structurally normal valve. Doppler: Transvalvular velocity was within the normal range. There was no evidence for stenosis. Trace to mild regurgitation. Peak gradient: 5mm Hg (D). LEFT ATRIUM: The atrium was normal in size. RIGHT VENTRICLE: The cavity size was normal. Wall thickness was normal. PULMONIC VALVE: Doppler: Transvalvular velocity was within the normal range. There was no evidence for stenosis. No regurgitation. TRICUSPID VALVE: Structurally normal valve. Doppler: Transvalvular velocity was within the normal range. No regurgitation. PULMONARY ARTERY: The main pulmonary artery was normal-sized. Systolic pressure was within the normal range. RIGHT ATRIUM: The atrium was normal in size. PERICARDIUM: There was no pericardial effusion. SYSTEMIC VEINS: Inferior vena cava: The vessel was normal in size. Patient weight: 225.5lb _Ejection fraction:_ 65-75% _Fractional shortening:_ 32% up to 5Kg 5-11.5Kg 11.6-22.9Kg 23-45Kg 45-57Kg Aortic Root 7-13 <17 13-22 17-27 17-27 LA diam 6-13 <23 24-38 33-47 37-40 RVID 10-17 7-15 7-15 7-18 8-17 LVIDd 12-22 <32 24-38 33-47 37-40 LVPW 2-4 3-6 5-7 6-8 7-8 IVS 2-4 3-6 5-7 6-8 7-8 BASIC MEASUREMENTS ADULT NORMAL Left ventricle LV internal dimension, ED, chordal *52.3 mm 43-52 level, PLAX LV internal dimension, ES, chordal *40.8 mm 23-38 level, PLAX Fractional shortening, chordal level, *22 % >29 PLAX LV posterior wall thickness, ED 8.3 mm IVS/LVPW ratio, ED 1.13 <1.3 Ventricular septum Septal thickness, ED 9.37 mm Aortic valve Leaflet separation 19 mm 15-26 BASIC MEASUREMENTS ADULT NORMAL Aortic valve Leaflet separation 19 mm 15-26 Aorta Root diameter, ED 35 mm 20-37 Left atrium Anterior-posterior dimension, ES 38 mm 19-40 Anterior-posterior dimension index, ES 1.66 cm/m^2 <2.2 LA/aortic root ratio 1.09 DOPPLER MEASUREMENTS ADULT NORMAL Aortic valve Peak velocity, S 102 cm/s Valve area, Vmax 2.68 cm^2 Valve area index, Vmax 1.17 cm^2/m^2 Mitral valve Peak E-wave velocity 112 cm/s Peak A-wave velocity 104 cm/s Deceleration time 169 ms 150-230 Peak gradient, D 5 mm Hg Peak E/A ratio 1.1 Pulmonic valve Peak velocity, S 130 cm/s LEGEND: Mean values are shown as u=mean value. Asterisk (*) guerrero values outside specified normal range. Prepared and signed by Juan Dover [id number]
[2016-11-06] MEDS ORDERED: ENALAPRILAT 1.25 MG/ML VIAL IV PRN (17:41)
[2016-11-06] MEDS ORDERED: cloNIDine HCL 0.1 MG TAB PO ONE ×2 (20:30→21:45)
[2016-11-06] MEDS ORDERED: ACETAMINOPHEN 325 MG TAB PO PRN (21:45)
[2016-11-07 04:26] VITALS: BP 163/100; PULSE 63; RESP 18; TEMP 96.5; O2SAT 97
[2016-11-07] MEDS: INSULIN ASPART SUPPLEMENTAL SCALE SQ SCH ×2 (05:29→11:00)
[2016-11-07 08:21] VITALS: BP 173/108; PULSE 80; RESP 16; TEMP 98; O2SAT 96
--- NOTE | 2016-11-07 08:58 | MG ---
cc: VIRIDIANA FUENTES M.D., DALIA M.D. Lab No: 17-15 Date: 11/06/2016 : 1970 Sex: M TECHNIQUE 17-channel EEG. DESCRIPTION The background rhythm reveals a symmetrical alpha rhythm. The frequency is roughly 8-10 Hz, amplitude is about 20-30 microvolts. There is the expected anterior decrement to the response. Occasional eye movement artifact is identified and occasional muscle artifact is seen. Photic stimulation is done in a stepwise fashion with a well-developed symmetrical driving response. There are no lateralizing features. There are no epileptiform discharges present. Hyperventilation was performed with no change in the background rhythm. INTERPRETATION This is a normal EEG. MD AYAN King/JUDY /8:52 AM /8:54 AM
[2016-11-07 09:37] VITALS: O2SAT 100
[2016-11-07] MEDS: RIVAROXABAN 15 MG TAB PO SCH (10:18)
[2016-11-07] MEDS: SODIUM CHLORIDE 0.9% FLUSH 5 ML FLUSH IV FLUSH SCH (10:18)
[2016-11-07] MEDS ORDERED: XARE20TA PO (10:23)
[2016-11-07] MEDS ORDERED: LISI-515 PO (10:23)
--- NOTE | 2016-11-07 10:26 | HHI.DCPOC ---
Discharge Care Plan Diagnosis: (1) HTN (hypertension) (2) Alcohol abuse (3) Left leg DVT (4) Lipoma Goals to Promote Your Health * To prevent worsening of your condition and complications * To maintain your health at the optimal level Directions to Meet Your Goals Take your medications as prescribed Follow your dietary instruction Follow activity as directed Keep your appointments as scheduled Take your immunizations and boosters as scheduled If your symptoms worsen call your PCP, if no PCP go to Urgent Care Center or Emergency Room Smoking is Dangerous to Your Health. Avoid second hand smoke Call the 24-hour hour crisis hotline for domestic abuse at Flash Sotelo DO Nov 07, 2016 10:26
[2016-11-07] MEDS ORDERED: LISINOPRIL 20 MG TAB PO SCH (10:30)
--- NOTE | 2016-11-07 10:34 | HHI.PR ---
Subjective Remarks The patient said that he was concerned about his blood pressure being on the high side. He said that he hadn't had a drink in 2 months and said he drank a little too hard prior to coming to the hospital. He is sure all of his symptoms are related to drinking too much alcohol. He says he will not drink while he is on Xarelto for the next month. He said that he has had some pain in his mid back that bothers him when he is lying in bed but gets better when he moves. It has been going on for a couple of days. Discussed with nursing. Objective Vitals Vital Signs Date Time Temp Pulse Resp B/P Pulse Ox O2 Delivery O2 Flow Rate FiO2 11/07/16 08:21 98.0 80 16 173/108 96 11/07/16 04:26 96.5 63 18 163/100 97 11/06/16 23:47 96.8 75 18 142/108 96 11/06/16 21:30 176/100 Automatic Cuff 11/06/16 19:42 223/116 11/06/16 18:11 21 11/06/16 17:30 98.0 105 18 181/115 98 11/06/16 13:29 97.6 90 18 187/108 97 I/O 11/06/16 11/06/16 11/06/16 11/07/16 11/07/16 11/07/16 06:59 14:59 22:59 06:59 14:59 22:59 Intake Total 120 ml 480 ml 240 ml Output Total 950 ml Balance -830 ml 480 ml 240 ml Intake Oral 120 ml 480 ml 240 ml Output Urine Total 950 ml # Voids 4 4 # Bowel Movements 0 Result Diagram: 11/06/16 1428 11/06/16 1428 Imaging Last Impressions Head CTA 11/05/16 1553 Signed Impressions: Service Date/Time: Saturday, November 05, 2016 16:06 - CONCLUSION: 1. No large or central vessel occlusion identified. 2. Congenitally small right vertebral. Zane Puckett MD Neck CTA 11/05/16 0000 Signed Impressions: Service Date/Time: Saturday, November 05, 2016 16:06 - CONCLUSION: No evidence of carotid stenosis or occlusion Dom Horn MD Head CT 11/05/16 0000 Signed Impressions: Service Date/Time: Saturday, November 05, 2016 15:58 - CONCLUSION: Normal examination for a patient of this age. Zelalem Pearson MD Chest X-Ray 11/05/16 0000 Signed Impressions: Service Date/Time: Saturday, November 05, 2016 16:14 - CONCLUSION: 1. Mild cardiomegaly. No acute abnormality identified. Zane Puckett MD Brain MRI 11/05/16 0000 Signed Impressions: Service Date/Time: Saturday, November 05, 2016 20:39 - CONCLUSION: No acute intracranial findings Dom Horn MD Objective Remarks GENERAL: This is a well-nourished, well-developed patient, in no apparent distress. SKIN: No rashes, ecchymoses or lesions. Cool and dry. HEAD: Atraumatic. Normocephalic EYES: Pupils equal round and reactive. ENT: Nose without bleeding, purulent drainage or septal hematoma. Airway patent. NECK: Trachea midline. No JVD or lymphadenopathy. Supple, nontender, no meningeal signs. CARDIOVASCULAR: Regular rate and rhythm without murmurs, gallops, or rubs. RESPIRATORY: Clear to auscultation. Breath sounds equal bilaterally. No wheezes , rales, or rhonchi. GASTROINTESTINAL: Abdomen soft, non-tender, nondistended. MUSCULOSKELETAL: Extremities without clubbing, cyanosis, or edema. Lipoma appreciated at left upper midback. NEUROLOGICAL: Awake and alert. Cranial nerves II through XII intact. Motor and sensory grossly within normal limits. Five out of 5 muscle strength in all muscle groups. Normal speech. PSYCH: Mood and affect appropriate. Procedures None. Medications and IVs Current Medications Medications (Trade) Dose Ordered Sig/Derik Route Start Time Stop Time Status Last Admin (Trandate Inj) 10 mg Q2H PRN IV 11/05/16 17:15 (D50w (Vial) Inj) 25 ml UNSCH PRN IV PUSH 11/05/16 17:15 (Glucagon Inj) 1 mg UNSCH PRN IM/SQ 11/05/16 17:15 (NS Flush) 2 ml UNSCH PRN IV FLUSH 11/06/16 05:30 (NS Flush) 2 ml BID IV FLUSH 11/06/16 09:00 11/07/16 10:18 (Ativan) 1 mg Q4H PRN PO 11/06/16 05:30 (Ativan Inj) 1 mg Q4H PRN IV PUSH 11/06/16 05:30 (Ativan) 2 mg Q2H PRN PO 11/06/16 05:30 (Ativan Inj) 2 mg Q2H PRN IV PUSH 11/06/16 05:30 (Ativan Inj) 2 mg Q1H PRN IV PUSH 11/06/16 05:30 (Ativan Inj) 2 mg Q15M PRN IV PUSH 11/06/16 05:30 (Xarelto) 15 mg BID PO 11/06/16 09:00 11/07/16 10:18 (Vasotec Inj) 1.25 mg Q6H PRN IV 11/06/16 17:41 11/06/16 19:02 (Tylenol) 650 mg Q4H PRN PO 11/06/16 21:45 11/06/16 22:04 (Prinivil) 20 mg DAILY PO 11/07/16 10:30 A/P Problem List: (1) CVA (cerebral vascular accident) ICD Code: I63.9 Status: Acute (2) Alcohol abuse ICD Code: F10.10 Status: Chronic (3) HTN (hypertension) ICD Code: I10 Status: Chronic Assessment and Plan 46-year-old male with a history of hypertension and recent left lower extremity DVT presented as a stroke alert. AMS The pt presented with dysphasia and was called a stroke alert. He was evaluated by neurology. Headd CT unremarkable, MRI unremarkable, neck CTA unremarkable. EEG unremarkable. Echo with EF of 40-45%. LDL was 40. He worked with PT/OT/ST. Symptoms likely s/t alcohol intoxication. He received cessation instruction. He will follow up at the community clinic. He will continue Xarelto. Alcohol abuse Patient states he hasn't had a drink in months until presentation. Alcohol level on admission was 409. CIWA protocol was in place. He received cessation instruction. Hypertension Initially placed on permissive hypertension. The pt received Vasotec as needed. He was stared on lisinopril 20 mg daily. He will follow up at the community clinic. Lower extremity DVT The pt is on Xarelto and said he ran out. surgery manager assisted pt with additional month supply, which will complete the pt's 3 month course. He will have outpt follow-up. DVT prophylaxis: Xarelto. Discharge Planning D/c home. Problem Qualifiers (1) CVA (cerebral vascular accident): Qualified Code: I63.8 - Cerebrovascular accident (CVA) due to other mechanism Flash Sotelo DO Nov 07, 2016 10:34
[2016-11-07] MEDS ORDERED: cloNIDine HCL 0.1 MG TAB PO ONE (12:30)
== END 2016-11-07 13:36 | disposition home or self-care (01) | DRG 897 ==
LOC: NEPE 15:47 → NEDA 17:36 → N05B 21:52
PROVIDERS: ADMIT Hospitalist; ATTEND Hospitalist
DX: F10.120 Alcohol abuse with intoxication, uncomplicated (principal); I82.409 Acute embolism and thrombosis of unspecified deep veins of unspecified lower extremity; I10 Essential (primary) hypertension; R47.01 Aphasia; Y90.8 Blood alcohol level of 240 mg/100 ml or more; Z79.01 Long term (current) use of anticoagulants; Z86.718 Personal history of other venous thrombosis and embolism; Z87.891 Personal history of nicotine dependence
CPT/HCPCS: 70450; 70496; 70498; 70551; 71010; 80053; 80061; 80307; 80320; 81001; 82435; 82550; 82565; 82947; 82948; 83036; 84132; 84295; 84484; 84520; 85025; 85027; 85384; 85610; 85730; 86850; 86900; 86901; 93005; 93306; 95819; 96361; 96374; J7030; P9612; Q9967

== ENCOUNTER 2017-03-17 12:59 | Emergency (ER) | payer SELFPAY ==
[~2017-03-17] VITALS: Ht 185.4 cm; Wt 104.2 kg
[~2017-03-17 12:59] MED LIST changes: -HYDR-3580 PO; +LISI-515 PO; -XARE15TA PO; +XARE20TA PO
[2017-03-17 13:03] VITALS: BP 155/99; PULSE 94; RESP 16; TEMP 98.5; O2SAT 97
--- NOTE | 2017-03-17 13:39 | PD ---
HPI Chief Complaint: Skin Problem Time Seen by Provider: 13:12 Travel History International Travel<30 days: No Contact w/Intl Traveler<30days: No Traveled to known affect area: No History of Present Illness HPI 46-year-old male arrives with a wound along the medial left ankle. Duration a few weeks. Daily application of hydrogen peroxide has not helped. It started as a very mild cut. No fever. He states there is no pain. He states there has been redness about the area for several weeks at least. PFSH Past Medical History Cancer: No Cardiovascular Problems: No Diabetes: No Diminished Hearing: No Endocrine: No Gastrointestinal Disorders: Yes (umbilical hernia ) Genitourinary: No Hepatitis: No Hiatal Hernia: No Hypertension: No Immune Disorder: No Musculoskeletal: No Neurologic: Yes (POSSIBLE STROKE THIS ADMISSION) Psychiatric: No Reproductive: No Respiratory: Yes (SPONTANIOUS PNEUMOTHORAX IN 1999) Immunizations Current: Yes Thyroid Disease: No Influenza Vaccination: Yes Past Surgical History Abdominal Surgery: Yes (UMBILICAL HERNIA) Cardiac Surgery: No Ear Surgery: No Endocrine Surgery: No Eye Surgery: No Genitourinary Surgery: No Gynecologic Surgery: No Joint Replacement: Yes (LEFT HIP DOM AND SCREW) Neurologic Surgery: No Oral Surgery: No Thoracic Surgery: No Other Surgery: Yes Social History Alcohol Use: Yes (occas) Tobacco Use: Yes (3-4 qod) Substance Use: No Allergies-Medications (Allergen,Severity, Reaction): Coded Allergies: No Known Allergies (Verified , 03/17/17) Reported Meds & Prescriptions Reported Meds & Active Scripts Active No Active Prescriptions or Reported Medications Review of Systems Except as stated in HPI: all other systems reviewed are Neg Physical Exam Narrative GENERAL: 46-year-old male well-nourished well-developed no acute distress SKIN: Focused skin assessment warm/dry. Minimal ulcerative lesion along the medial aspect of the left lower extremity, about 3 cm. HEAD: Atraumatic. Normocephalic. EYES: Pupils equal and round. No scleral icterus. No injection or drainage. ENT: No nasal bleeding or discharge. Mucous membranes pink and moist. NECK: Trachea midline. No JVD. CARDIOVASCULAR: Regular rate and rhythm. No murmur appreciated. RESPIRATORY: No accessory muscle use. Clear to auscultation. Breath sounds equal bilaterally. GASTROINTESTINAL: Abdomen soft, non-tender, nondistended. Hepatic and splenic margins not palpable. MUSCULOSKELETAL: No obvious deformities. No clubbing. No cyanosis. No edema. NEUROLOGICAL: Awake and alert. No obvious cranial nerve deficits. Motor grossly within normal limits. Normal speech. PSYCHIATRIC: Appropriate mood and affect; insight and judgment normal. Data Data Last Documented VS Vital Signs Date Time Temp Pulse Resp B/P Pulse Ox O2 Delivery O2 Flow Rate FiO2 03/17/17 13:03 98.5 94 16 155/99 97 VS reviewed MDM Medical Decision Making Medical Screen Exam Complete: Yes Emergency Medical Condition: Yes Medical Record Reviewed: Yes Differential Diagnosis Cellulitis, chronic wound, abscess; DVT is considered unlikely Narrative Course We discussed wound care options. Does not appear to be cellulitic. Patient's ready for discharge. Diagnosis Primary Impression: Open ankle wound Qualified Code: S91.002A - Open wound of left ankle, initial encounter Referrals: Primary Care Physician 2 days Additional Instructions: You have a choice when it comes to health care, and we are glad that you chose [facility]. Hopefully, we have met your expectations on today's visit. You are welcome to return to [facility] at any time, as we are committed to meeting the health care needs of our community. Med/Other Pt SpecificInfo: No Change to Meds Scripts No Active Prescriptions or Reported Meds Disposition: DISCHARGE HOME Condition: Stable Zane Robbins MD March 17, 2017 13:39
== END 2017-03-17 13:47 | disposition home or self-care (01) ==
LOC: PHED 12:59
DX: S91.012D Laceration without foreign body, left ankle, subsequent encounter (principal); F17.200 Nicotine dependence, unspecified, uncomplicated; X58.XXXD Exposure to other specified factors, subsequent encounter
CPT/HCPCS: 99283

== ENCOUNTER 2017-08-21 09:19 | Emergency (ER) | payer SELFPAY ==
[~2017-08-21] VITALS: Ht 190.5 cm; Wt 90.0 kg
[2017-08-21 09:21] VITALS: BP 176/98; PULSE 94; RESP 16; TEMP 98.4; O2SAT 98
[2017-08-21] MEDS ORDERED: BACT800T5 PO (09:55)
[2017-08-21] MEDS ORDERED: IBUP800T23 PO (09:55)
[2017-08-21] MEDS ORDERED: CEPH-460 PO (09:55)
[2017-08-21] MEDS ORDERED: HYDR-3533 PO (09:55)
--- NOTE | 2017-08-21 09:57 | PD ---
HPI Chief Complaint: Skin Problem Time Seen by Provider: 09:50 Travel History International Travel<30 days: No Contact w/Intl Traveler<30days: No Traveled to known affect area: No History of Present Illness HPI 47-year-old male presents to the emergency Department with complaint of an open wound to his left medial ankle area 3 months. Reports wound is getting bigger. Reports redness and warmth around the area. Denies drainage from the wound site. Was seen 3 months ago in an emergency room when the wound started and was told he needs to follow-up with primary care provider and see a vascular surgeon. Denies paresthesias, loss of sensation, decreased range motion, decreased strength to the affected extremity. Reports edema that is also been present for the past 3 months. Denies fever, vomiting. Rates pain 10 /10. Describes pain as a shooting sensation. Has been keeping the area covered with a bandage. Has been taking ibuprofen for symptom management. Pain is constantly aggravated. No known relieving factors. Denies being diabetic. Does not have an established primary care provider. Has no other medical complaints. No known allergies. No other modifying factors or associated signs and symptoms. PFSH Past Medical History Cancer: No Cardiovascular Problems: No Diabetes: No Diminished Hearing: No Endocrine: No Gastrointestinal Disorders: Yes (umbilical hernia ) Genitourinary: No Hepatitis: No Hiatal Hernia: No Hypertension: No Immune Disorder: No Musculoskeletal: No Neurologic: Yes (POSSIBLE STROKE THIS ADMISSION) Psychiatric: No Reproductive: No Respiratory: Yes (SPONTANIOUS PNEUMOTHORAX IN 1999) Immunizations Current: Yes Thyroid Disease: No Past Surgical History Abdominal Surgery: Yes (UMBILICAL HERNIA) Cardiac Surgery: No Ear Surgery: No Endocrine Surgery: No Eye Surgery: No Genitourinary Surgery: No Gynecologic Surgery: No Joint Replacement: Yes (LEFT HIP DOM AND SCREW) Neurologic Surgery: No Oral Surgery: No Thoracic Surgery: No Other Surgery: Yes Social History Alcohol Use: Yes (occas) Tobacco Use: Yes (3-4 qod) Substance Use: No Allergies-Medications (Allergen,Severity, Reaction): Coded Allergies: No Known Allergies (Verified , 03/17/17) Reported Meds & Prescriptions Reported Meds & Active Scripts Active Lortab (Hydrocodone-Acetaminophen) 5-325 Mg Tab 1 Tab PO Q4H PRN Ibuprofen 800 Mg Tab 800 Mg PO Q6HR PRN Bactrim DS (Sulfamethoxazole-Trimethoprim) 800-160 Mg Tab 1 Tab PO BID 10 Days Keflex (Cephalexin) 500 Mg Cap 500 Mg PO Q6H 10 Days Review of Systems Except as stated in HPI: all other systems reviewed are Neg Physical Exam Narrative GENERAL: Well-nourished, well-developed male patient, in no acute distress; afebrile, nontoxic-appearing SKIN: Warm and dry. Left medial ankle with 3 cm in diameter open wound; superficial granulated wound; without drainage; with surrounding erythema and warmth to touch; no lymphangitis. Left lower extremity supple and non-tense with 2+ pedal pulse and sensory intact. 1+ pitting edema. HEAD: Atraumatic. Normocephalic. EYES: Pupils equal and round. No scleral icterus. No injection or drainage. ENT: Mucosa pink and moist. Airway patent. NECK: Trachea midline. CARDIOVASCULAR: Regular rate. RESPIRATORY: No accessory muscle use. GASTROINTESTINAL: Rounded. MUSCULOSKELETAL: No obvious deformities. No clubbing. No cyanosis. No edema. NEUROLOGICAL: Awake and alert. Oriented 3. No obvious cranial nerve deficits. Motor grossly within normal limits. Normal speech. PSYCHIATRIC: Appropriate mood and affect; insight and judgment normal. Data Data Last Documented VS Vital Signs Date Time Temp Pulse Resp B/P (MAP) Pulse Ox O2 Delivery O2 Flow Rate FiO2 08/21/17 09:21 98.4 94 16 176/98 (124) 98 Orders Orders Ed Discharge Order (08/21/17 09:50) Wound Culture And Gram Stain (08/21/17 09:50) Acetamin-Hydrocod 325-5 Mg ([place] 5-325 (08/21/17 10:00) Wound Care (08/21/17 10:02) MDM Medical Decision Making Medical Screen Exam Complete: Yes Emergency Medical Condition: Yes Medical Record Reviewed: Yes Differential Diagnosis Chronic wound, peripheral vascular disease, PAD, cellulitis, wound infection Narrative Course 47-year-old male with chronic wound of the left medial ankle area x 3 months. Patient is afebrile and nontoxic-appearing. There is some surrounding erythema and warmth to the area. Patient denies fever, vomiting. The left lower extremity is supple and nontender 2+ pedal pulses and sensory intact. Up-to- date on tetanus vaccination. Wound culture pending. Lortab administered in the ER. I spoke with Dr. Highet, my attending physician, and she agrees with my plan of care. Patient provided information sheet for rust for follow-up. Patient will be antibiotics for possible infection. Wound care provided. Keflex, Bactrim, ibuprofen, Lortab prescribed for home. Instructed to patient to follow up with vascular surgeon and wound care. Instructed patient to follow up with primary care provider. Patient verbalizes understanding and agreement with treatment plan. Patient is medically cleared and stable for discharge. Discussed reasons to return to the emergency department. Patient agrees with treatment plan. The patients vital signs are stable and the patient is stable for outpatient follow-up and treatment. Patient discharged home, stable and in no acute distress. Diagnosis Primary Impression: Wound of left leg Qualified Codes: S81.802A - Unspecified open wound, left lower leg, initial encounter Referrals: [facility] Primary Care Physician Vascular Surgeon Patient Instructions: Chronic Wound Care (DC), Chronic Wounds (ED), General Instructions, Peripheral Vascular Disease (ED) Additional Instructions: Refer to discharge instructions for chronic wound care Follow-up with primary care provider Follow-up with rust Follow-up with vascular surgeon Follow-up with wound care Return to the emergency department immediately with worsening symptoms Med/Other Pt SpecificInfo: Prescription(s) given Scripts Hydrocodone-Acetaminophen (Lortab) 5-325 Mg Tab 1 TAB PO Q4H Y for PAIN, #10 TAB 0 Refills Prov: Ronda AtkinsonP 08/21/17 Ibuprofen (Ibuprofen) 800 Mg Tab 800 MG PO Q6HR Y for PAIN, #30 TAB 0 Refills Prov: Ronda Atkinson 08/21/17 Sulfamethoxazole-Trimethoprim (Bactrim DS) 800-160 Mg Tab 1 TAB PO BID for Infection for 10 Days, #20 TAB 0 Refills Prov: Ronda AtkinsonP 08/21/17 Cephalexin (Keflex) 500 Mg Cap 500 MG PO Q6H for Infection for 10 Days, #40 CAP 0 Refills Prov: Ronda AtkinsonP 08/21/17 Disposition: 01 DISCHARGE HOME Condition: Stable Ronda Atkinson Aug 21, 2017 09:57
[2017-08-21] MEDS ORDERED: ACETAMINOPHEN/HYDROcodone 325 MG/5 MG TAB PO ONE (10:00)
== END 2017-08-21 10:25 | disposition home or self-care (01) ==
LOC: NEPK 09:19
DX: S91.002A Unspecified open wound, left ankle, initial encounter (principal); B95.61 Methicillin susceptible Staphylococcus aureus infection as the cause of diseases classified elsewhere; Z72.0 Tobacco use; X58.XXXA Exposure to other specified factors, initial encounter
CPT/HCPCS: 86403; 87070; 87186; 87205; 99284

== ENCOUNTER 2018-03-20 12:13 | Emergency (ER) | END 2018-03-20 14:19 | disposition home or self-care (01) | DX: J40 Bronchitis, not specified as acute or chronic (principal); R50.9 Fever, unspecified; M79.1 Myalgia; I10 Essential (primary) hypertension; Z72.0 Tobacco use; Z87.19 Personal history of other diseases of the digestive system ==

== ENCOUNTER 2018-04-28 08:14 | Emergency (ER) | payer BC ==
[~2018-04-28] VITALS: Ht 185.4 cm; Wt 89.0 kg
[~2018-04-28 08:14] MED LIST changes: -3-IN3MIS; +AZIT250T3 PO; -LISI-515 PO; -WALKER WHEELS/F1 MIS; -XARE20TA PO
[2018-04-28 08:19] VITALS: BP 139/87; PULSE 114; RESP 16; TEMP 99.3; O2SAT 99
[2018-04-28] MEDS ORDERED: AMOX875T PO (08:53)
[2018-04-28] MEDS ORDERED: predniSONE 20 MG TAB PO ONE (09:00)
[2018-04-28] MEDS ORDERED: AMOXICILLIN 875 MG TAB PO ONE (09:00)
[2018-04-28] MEDS ORDERED: LIDOCAINE VISCOUS 2% SOLN 15 ML UDC SWISH-SWAL SCH (09:00)
[2018-04-28] MEDS ORDERED: ACETAMINOPHEN 650 MG/20.3 ML UDC PO ONE (09:00)
--- NOTE | 2018-04-28 09:18 | PD ---
HPI . Sore throat Chief Complaint: Cold / Flu Symptoms Time Seen by Provider: 08:50 Travel History International Travel<30 days: No Contact w/Intl Traveler<30days: No Traveled to known affect area: No History of Present Illness HPI Patient presents with a chief complaint of a sore throat. Onset was 3 days ago. He states that he awakened this morning and had some coughing with hemoptysis. He denies fever. He denies any known sick contacts. He does complain of ear pain and some chest soreness. He rates his pain at 5/10. PFSH Past Medical History Cancer: No Cardiovascular Problems: Yes (HTN) Diabetes: No Diminished Hearing: No Endocrine: No Gastrointestinal Disorders: Yes (umbilical hernia ) Genitourinary: No Hepatitis: No Hiatal Hernia: No Hypertension: No Immune Disorder: No Musculoskeletal: No Neurologic: Yes Psychiatric: No Reproductive: No Respiratory: Yes (SPONTANIOUS PNEUMOTHORAX IN 1999) Immunizations Current: Yes Thyroid Disease: No Tetanus Vaccination: < 5 Years Influenza Vaccination: No Past Surgical History Abdominal Surgery: Yes (UMBILICAL HERNIA) Cardiac Surgery: No Ear Surgery: No Endocrine Surgery: No Eye Surgery: No Genitourinary Surgery: No Gynecologic Surgery: No Joint Replacement: Yes (LEFT HIP DOM AND SCREW) Neurologic Surgery: No Oral Surgery: No Thoracic Surgery: No Other Surgery: Yes Social History Alcohol Use: Yes (occ) Tobacco Use: Yes Substance Use: No Allergies-Medications (Allergen,Severity, Reaction): Coded Allergies: No Known Allergies (Verified Adverse Reaction, Unknown, 04/28/18) Reported Meds & Prescriptions Reported Meds & Active Scripts Active Amoxicillin 875 Mg Tab 875 Mg PO BID 7 Days Azithromycin 250 Mg Tab 250 Mg PO DIRECTED Take 2 tabs (500 mg) on day 1 then 1 tab daily x 4 days. Review of Systems Except as stated in HPI: all other systems reviewed are Neg General / Constitutional: No: Fever, Chills Eyes: No: Drainage, Redness HENT: Positive: Sore Throat, Earache, No: Rhinorrhea, Congestion Cardiovascular: Positive: Chest Pain or Discomfort Respiratory: Positive: Cough, Hemoptysis Physical Exam Narrative GENERAL: Awake and alert and in no acute distress. SKIN: warm/dry. HEAD: Normocephalic. Atraumatic. EYES: Pupils equal and round. Extraocular movements are intact. ENT: TMs are shiny sterling with good light reflexes bilaterally. Marked erythema of the soft palate with some associated edema. There is no peritonsillar edema. NECK: Supple. Full range of motion without pain. Bilateral cervical adenopathy. CARDIOVASCULAR: Regular rate and rhythm. RESPIRATORY: No accessory muscle use. Clear to auscultation. Breath sounds equal bilaterally. GASTROINTESTINAL: Abdomen soft. Nontender. Bowel sounds present. Nondistended. MUSCULOSKELETAL: No obvious deformities. Normal muscle tone. NEUROLOGICAL: Awake and alert. No obvious cranial nerve deficits. Motor grossly within normal limits. Normal speech. PSYCHIATRIC: Appropriate mood and affect; insight and judgment normal. Data Data Last Documented VS Vital Signs Date Time Temp Pulse Resp B/P (MAP) Pulse Ox O2 Delivery O2 Flow Rate FiO2 04/28/18 08:21 98 04/28/18 08:19 99.3 114 16 139/87 (104) Orders Orders Lidocaine 2% Viscous (Xylocaine 2% Visco (04/28/18 09:00) Acetaminophen 650 Mg/20 Ml Liq (Tylenol (04/28/18 09:00) Amoxicillin (Trimox) (04/28/18 09:00) Prednisone (Deltasone) (04/28/18 09:00) Ed Discharge Order (04/28/18 08:53) MDM Medical Decision Making Medical Screen Exam Complete: Yes Emergency Medical Condition: Yes Differential Diagnosis Differential diagnosis of sore throat includes but is not limited to viral illness, strep throat, mononucleosis, retropharyngeal abscess, peritonsillar abscess Narrative Course This patient presents with a chief complaint of a sore throat. He has marked erythema of the oropharynx with some mild edema. No peritonsillar edema. He has associated cervical lymphadenopathy. He will be discharged home on amoxicillin. I have treated him here with a dose of prednisone and amoxicillin. He has also had viscous lidocaine and Tylenol for pain. Diagnosis Primary Impression: Pharyngitis Qualified Codes: J02.9 - Acute pharyngitis, unspecified Referrals: NO PRIMARY CARE PHYSICIAN (PCP) call for appointment Patient Instructions: General Instructions, Pharyngitis (ED) Departure Forms: Tests/Procedures Scripts Amoxicillin (Amoxicillin) 875 Mg Tab 875 MG PO BID for Infection for 7 Days, #14 TAB 0 Refills Prov: Nini Zuniga MD 04/28/18 Disposition: 01 DISCHARGE HOME Condition: Stable Nini Zuniga MD Apr 28, 2018 09:18
== END 2018-04-28 09:05 | disposition home or self-care (01) ==
LOC: PHED 08:14
DX: J02.9 Acute pharyngitis, unspecified (principal); Z72.0 Tobacco use
CPT/HCPCS: 99283; J7512